=== PATIENT | female | born 1960 | race Caucasian/White ===

== ENCOUNTER 2017-09-20 20:45 | Emergency (ER) | payer BC, MEDICAID, OTHER ==
[~2017-09-20 20:45] MED LIST: AMLO10TA4; LOSA50TA3
[2017-09-20] MEDS ORDERED: ONDANSETRON HCL/PF 4 MG/2 ML VIAL ONE (21:22)
[2017-09-20] MEDS ORDERED: IV NS 0.9% 1,000 ML BAG IV ONE (21:30)
[2017-09-20] MEDS ORDERED: ONDANSETRON HCL/PF 4 MG/2 ML VIAL IVP ONE (21:30)
[2017-09-20] MEDS ORDERED: KETOROLAC TROMETHAMINE INJ 30 MG/ML VIAL ONE (22:06)
[2017-09-20] MEDS ORDERED: KETOROLAC TROMETHAMINE INJ 30 MG/ML VIAL IV ONE (22:30)
== END 2017-09-20 23:36 | disposition home or self-care (01) ==
DX: N20.0 Calculus of kidney (principal); K59.00 Constipation, unspecified; I10 Essential (primary) hypertension; Z90.710 Acquired absence of both cervix and uterus; Z88.1 Allergy status to other antibiotic agents

== ENCOUNTER 2017-11-26 20:58 | Emergency (ER) | payer BC, OTHER ==
[~2017-11-26] VITALS: Ht 170.2 cm; Wt 79.4 kg
[2017-11-26] MEDS ORDERED: ALBUTEROL FS 2.5 MG/3 ML VIAL.NEB NEB ONE (22:30)
[2017-11-26] MEDS ORDERED: predniSONE 20 MG TABLET PO ONE (22:30)
[2017-11-26] MEDS ORDERED: CYCLOBENZAPRINE 10 MG TABLET PO ONE (22:30)
[2017-11-26] MEDS ORDERED: IPRATROPIUM NEB FS 0.5 MG/2.5 ML AMPUL.NEB NEB ONE (22:30)
[2017-11-26] MEDS ORDERED: TRAMADOL HCL 50 MG TABLET PO ONE (22:30)
[2017-11-26] MEDS ORDERED: ALBUTEROL FS 2.5 MG/3 ML VIAL.NEB ONE (22:40)
[2017-11-26] MEDS ORDERED: IPRATROPIUM NEB FS 0.5 MG/2.5 ML AMPUL.NEB ONE (22:40)
[2017-11-26] MEDS ORDERED: TRAMADOL HCL 50 MG TABLET ONE (22:49)
[2017-11-26] MEDS ORDERED: predniSONE 20 MG TABLET ONE (22:50)
[2017-11-26] MEDS ORDERED: CYCLOBENZAPRINE 10 MG TABLET ONE (22:50)
[2017-11-27 00:03] LABS: APPEARANCE,URINE CLEAR (CLEAR); BILIRUBIN,URINE NEGATIVE (NEGATIVE); BLOOD, URINE 2+ Ery/uL (NEGATIVE); COLOR,URINE YELLOW (YELLOW); KETONES,URINE NEGATIVE (NEGATIVE); LEUKOCYTE ESTERASE ,URINE TRACE (NEGATIVE); NITRITE, URINE NEGATIVE (NEGATIVE); PH,URINE 5.5 (5.0-8.0); PROTEIN,URINE NEGATIVE (NEGATIVE); UGLUCOSE NEGATIVE (NEGATIVE); UROBILINOGEN,URINE 0.2 EU/dL (0.2)
[2017-11-27 00:26] LABS: BACTERIA,URINE None seen /HPF (None Seen); SQUAMOUS EPITHELIAL CELL,UR Few /HPF (None Seen); WBC,URINE 0-2 /HPF (0-3)
--- NOTE | 2017-11-27 00:44 | NUR ---
PT COMPLAIN OF PRESSURE ON THE EAR. NEGAR MORIN S/E THE PT. NOT SEEN ANYTHING ABNORMAL. PT WILL BE DISCHARGE WITH INSTRUCTION PROVIDED.
[2017-11-27 01:03] VITALS: BP 136/80
== END 2017-11-27 01:12 | disposition home or self-care (01) ==
LOC: ER 21:02
DX: J20.9 Acute bronchitis, unspecified (principal); M54.89 Other dorsalgia; I10 Essential (primary) hypertension; E11.9 Type 2 diabetes mellitus without complications; Z98.890 Other specified postprocedural states; Z88.1 Allergy status to other antibiotic agents; Z90.710 Acquired absence of both cervix and uterus
CPT/HCPCS: 71045-TC; 81000-TC; 82962-TC; A4606; Z7610